=== PATIENT | female | born 1965 | race Caucasian/White ===

== ENCOUNTER 2016-10-08 14:55 | Emergency (ER) | payer OTHER ==
[~2016-10-08] VITALS: Ht 147.3 cm; Wt 53.2 kg
[~2016-10-08 14:55] MED LIST: FENT1PAT7 TRANSDERM; OXYC5CAP4 PO; PRAM0.5T10 PO; Vit D PO
[2016-10-08 14:56] VITALS: BP 117/70; PULSE 102; RESP 19; O2SAT 99
--- NOTE | 2016-10-08 14:58 | ED.REPORT ---
HPI-Altered Mental Status Date of Service Oct 08, 2016 ED Provider: Raquel Coleman MD The patient is a 51 year old female who presents to the ED via EMS due to altered mental status. The patient's reports that yesterday, the pt was complaining of extreme fatigue. She is not diabetic but has issues with hypoglycemia, and can usually tell when her low sugar is coming on. The pt and her spouse were outside working in the yard, he left her for 3 minutes, came back and she was lying face down in the grass. There was no direct eyewitness to the event. Her turned her over, and although she was verbally coherent, she was disoriented to place, her name, and time. 3-4 minutes later, she was able to call her son by his name and was more aware of her situation. She does not currently remember the incident, being outside or gardening. Upon arrival at the scene, medics report that the pt was dazed, confused, and nonverbal on the ground. She did not bite her tongue and was not incontinent. At the ED, she is oriented to place and time and describes a stabbing pain behind her left eye. The family confirms a slight right sided facial droop. She has a hx of 2 unexplained seizures 4-5 years previously. She denies vomiting, nausea, loss of sensation in extremities. Nursing Notes Stated Complaint: ALTERED LOC Chief Complaint: General Complaint Nursing Notes Reviewed: Yes Allergies: Coded Allergies: erythromycin base (Verified Allergy, Severe, rash and itching, 10/08/16) morphine (Verified Allergy, Severe, severe nausea and vomiting, 10/08/16) citalopram hydrobromide (Verified Allergy, Unknown, UNKNOWN, 10/08/16) sertraline HCl (Verified Allergy, Unknown, UNKNOWN, 10/08/16) venlafaxine HCl (Verified Allergy, Unknown, UNKNOWN, 10/08/16) Scheduled ([Vit D]) 5,000 UNITS PO DAILY Fentanyl 25 mcg/hr Patch (Fentanyl 25 mcg/hr Patch) 1 Each Patch.td72 1 PATCH TRANSDERM Q3D Pramipexole Dihydrochloride (Pramipexole Dihydrochloride) 0.5 Mg Tablet 0.25 MG PO HSPRN Scheduled PRN oxyCODONE (oxyCODONE) 5 Mg Capsule 5 MG PO TID PRN PRN For Pain General Time Seen by MD: 14:58 Chief Complaint Other (possible stroke) Hx Obtained From: Patient, Spouse Arrived By: Walk-in Sudden in Onset?: Yes Onset Occurred: Just prior to arrival Symptom Duration: Since onset Progression since Onset: Gradually improving Recent Healthcare: No recent doctor visit, No recent hospitalization Similar Sx Previous: No Past Medical History Past Medical History 2 unexplained seizures 4-5 years ago Denies: Diabetes mellitus Past Surgical History gastric bypass Smoking History Unknown if Ever Smoker Social History Other Social History: Good social support, , Local resident Ambulatory Status Independent Review of Systems Constitutional: Reports: Fatigue GI: Denies: Nausea, Vomiting Neurologic: Reports: Change LOC, Dizziness, Slurred speech, Unable to speak, Weakness, Denies: Bladder dysfunction, Bowel dysfunction, Numbness Complete sys rev & neg: except as marked. Physical Exam Initial Vital Signs Vital Signs (First) Date Time Temp Pulse Resp B/P Pulse Ox O2 Delivery O2 Flow Rate FiO2 10/08/16 14:56 36.7 102 19 117/70 99 Initial VS: Reviewed, Vital signs abnormal Extremities: Vascular intact, Neuro intact, No swelling, No tenderness Skin: Warm, Dry General/Constitutional: Awake, Cooperative Head / Eyes: Atraumatic, Normocephalic, PERRL, EOMI possible right sided facial droop Neck: Atraumatic, Supple, No meningismus Respiratory / Chest: Atraumatic, Breath sounds NL, Breath sounds = bilat Cardiovascular: Regular rhythm, Heart sounds NL Heart Rate / Rhythm: Positive: Tachycardia Neurologic: Oriented X3, Speech NL, No motor deficits sensation and strength normal Abdomen: No rebound Tenderness/Guarding/Rebound: Positive: Guarding voluntary, Tender epigastric Interpretation & Diagnostics Interpretation & Diagnostics: CERVICAL SPIONE CT IMPRESSION: No fracture. No acute osseous lesion. If there are persistent symptoms or continued clinical suspicion for pathology, then MRI should be considered for further evaluation. Dictated by: Karen Mercado MD, PhD on 10/08/2016 at 15:46 Approved by: Karen Mercado MD, PhD on 10/08/2016 at 15:49 Lab Results Interpretation Result Diagram: 10/08/16 1510 10/08/16 1510 Test 10/08/16 15:10 White Blood Count 9.5th/mm3 (3.8-10.1) Red Blood Count 4.00mil/mm3 (3.90-5.20) Hemoglobin 12.3g/dL (12.0-15.6) Hematocrit 39.5% (35.0-46.0) Mean Corpuscular Volume 98.8fL (81-100) Mean Corpuscular Hemoglobin 30.8pg (27.0-35.0) Mean Corpuscular Hemoglobin Concent 31.1% (32.0-37.0) Red Cell Distribution Width 13.3% (12.3-15.4) Platelet Count 305bil/L (150-400) Neutrophils (%) (Auto) 55.5% (40-74) Lymphocytes (%) (Auto) 26.9% (14-46) Monocytes (%) (Auto) 12.6% (4-12) Eosinophils (%) (Auto) 4.4% (0-5) Basophils (%) (Auto) 0.4% (0-3) Sodium Level 140mEq/L (134-144) Potassium Level 3.2mEq/L (3.5-5.2) Chloride Level 100mEq/L (97-108) Carbon Dioxide Level 13mmol/L (18-29) Blood Urea Nitrogen 8mg/dL (6-24) Creatinine 0.74mg/dL (0.57-1.00) Estimat Glomerular Filtration Rate 118mL/min (>59) Glucose Level 56mg/dL (60-99) Calcium Level 9.4mg/dL (8.5-10.1) Magnesium Level 2.2mg/dL (1.6-2.6) Total Bilirubin 0.2mg/dL (0.0-1.2) Aspartate Amino Transf (AST/SGOT) 30U/L (0-50) Alanine Aminotransferase (ALT/SGPT) 18U/L (0-32) Alkaline Phosphatase 109U/L (25-150) Total Protein 7.8g/dL (6.4-8.4) Albumin 4.1g/dL (3.4-5.0) ECG Interpretation ECG Interpretation: normal axis non specific ST changes Q waves in 2 and 3 AVF with no acute ST changes Time: 15:02 Interpreted by: ED physician Normal ECG Interpretation: Normal sinus rhythm (99) CT Head Interpretation IMPRESSION: No acute intracranial disease process. Dictated by: Karen Mercado MD, PhD on 10/08/2016 at 15:50 Approved by: Karen Mercado MD, PhD on 10/08/2016 at 15:52 Study: Head CT no contrast Interpretation / Wet Read by: Interpret - Radiologist Re-Eval/Medical Decision Med Decision/Clinical Course The patient presented altered with hypoglycemia. After she is given D50 she was more coherent but still not quite her usual self. She complained of headache and there is a question of a facial droop. The patient would not be a TPA candidate given her lack of symptoms as well as her headache and hypoglycemia. The patient fully resolved to normal. In speaking with the family she has had 2 episodes like this before about her seizures related to her low glucose. This appear likely explanation for her symptoms. She also has a history of migraines and this may be the cause of her symptoms. The patient was treated for headache with significant improvement. No intracranial abnormalities were found and again the patient returned to baseline. Re-Evaluation/Progress #1: Time of Eval: 16:29 Patient Status: Condition improved Re-Evaluation/Progress Note: Pt rechecked. Informed pt and family of normal CT results. Re-Evaluation/Progress #2: Time of Eval: 17:33 Patient Status: Condition improved, Moderate relief Re-Evaluation/Progress Note: Pt rechecked. She is feeling slightly better. Counseled Regarding: Diagnosis, Lab results, Need for follow-up, When/why to return to ED Patient Discharge & Departure Impression: Primary Impression: Altered mental status Altered mental status type: unspecified Qualified Code: R41.82 - Altered mental status, unspecified Disposition: Home Discharge Condition All VS Reviewed: Yes Condition: Stable Additional Instructions: Your imaging did not show any signs of a stroke. It is likely that you had a hypoglycemic induced seizure. Make sure you increase your caloric intake on a regular basis to avoid another occurrence. Follow up with your primary care physician in the next week. Return to the Emergency Department for any new or worsening symptoms. Referrals: Olaf Torres MD (PCP) Scribe Attestation Portion of this note were transcribed by Maura Lopez. I, Dr. Coleman, personally performed the history, physical exam, and medical decision-making: I reviewed and confirmed the accuracy for the information in the transcribed note. Signed by: clayton Ventura, 10/08/16 1700 copies to: Olaf Torres MD, Jena M MD Oct 08, 2016 14:58 Maura Lopez Oct 08, 2016 15:11
[2016-10-08] MEDS ORDERED: Ondansetron 2 mg/mL 2 mL Inj IVPUSH PRN (15:10)
[2016-10-08] MEDS ORDERED: 0.9% Sodium Chloride 1,000 ML IV ONE ×2 (15:10→16:30)
[2016-10-08 15:17] LABS: BASOPHILS % (AUTO) 0.4 % (0-3); EOSINOPHILS % (AUTO) 4.4 % (0-5); MONOCYTES % (AUTO) 12.6 % (4-12); Mean Corpuscular Hemoglobin 30.8 pg (27.0-35.0); Mean Corpuscular Volume 98.8 fL (81-100); NEUTROPHILS % (AUTO) 55.5 % (40-74); Platelet Count 305 bil/L (150-400)
--- NOTE | 2016-10-08 15:51 | DRSVH ---
PROCEDURE: CT CERVICAL SPINE WITHOUT CONTRAST ([id number]) INDICATIONS: altered TECHNIQUE: Noncontrast 3 mm thick sections acquired from the skull base to the T4 level. Sagittal and coronal r eformats were then constructed. For radiation dose reduction, the following was used: automated exp osure control, adjustment of mA and/or kV according to patient size. COMPARISON: [facility], CR, SPINE CERVICAL 2 OR 3VW, 2013, 14:48. Formerly [facility], MR, CERVICAL SPINE W/O CONTRAST, 01/06/2013, 16:07. FINDINGS: Image quality: Excellent. Bones: No fractures or dislocations. Visualized superior ribs are intact. Surgical changes compatib le with C5-C6 ACDF noted. C6-C7 degenerative disc disease noted. Multilevel facet arthropathy noted . Soft tissues: Prevertebral soft tissues are normal in thickness. No paravertebral hematomas. No ap ical pneumothoraces. IMPRESSION: No fracture. No acute osseous lesion. If there are persistent symptoms or continued clin ical suspicion for pathology, then MRI should be considered for further evaluation. Dictated by: Karen Mercado MD, PhD on 10/08/2016 at 15:46 Approved by: Karen Mercado MD, PhD on 10/08/2016 at 15:49
--- NOTE | 2016-10-08 15:54 | DRSVH ---
PROCEDURE: CT BRAIN WITHOUT CONTRAST ([id number]) INDICATIONS: altered TECHNIQUE: Noncontrast 4.5 mm thick angled axial sections acquired from the foramen magnum to the vertex, with c oronal reformats. COMPARISON: [facility], CT, BRAIN W/O CONTRAST, 03/05/2009, 22:11. FINDINGS: Image quality: Excellent. CSF spaces: Basal cisterns are patent. No extra-axial fluid collections. Ventricles are normal in size and shape. Brain: No midline shift. No intracranial masses or hemorrhage. Summers-white matter interface is norm al. Skull and face: Calvarium and visualized facial bones are intact, without suspicious lesions. Sinuses: Small air-fluid level noted in the right maxillary sinus. Small left maxillary sinus mucus retention cysts versus polyps noted. mastoids are clear. IMPRESSION: No acute intracranial disease process. Dictated by: Karen Mercado MD, PhD on 10/08/2016 at 15:50 Approved by: Karen Mercado MD, PhD on 10/08/2016 at 15:52
[2016-10-08] MEDS ORDERED: Ketorolac 15 mg/mL Inj IVPUSH ONE (16:30)
[2016-10-08] MEDS ORDERED: ProchlorPERazine 5 mg/mL 2 mL Inj IVPUSH ONE (16:30)
[2016-10-08 18:10] VITALS: BP 122/72; PULSE 87; RESP 20
== END 2016-10-08 18:20 | disposition home or self-care (01) ==
LOC: SED 14:55
DX: R41.82 Altered mental status, unspecified (principal); E16.2 Hypoglycemia, unspecified; Z88.5 Allergy status to narcotic agent; Z88.1 Allergy status to other antibiotic agents; Z88.8 Allergy status to other drugs, medicaments and biological substances
CPT/HCPCS: 36415; 70450; 72125; 80053; 82948; 83735; 85025; 93005; 96361; 96374; 96375; 99285; J0780; J1200; J1885; J2405; J7030